=== PATIENT | female | born 1940 | race Caucasian/White ===

== ENCOUNTER 2023-03-28 08:35 | Outpatient (RCR) | payer MEDICARE | END 2023-03-30 | disposition home or self-care (01) | LOC: CR 08:35 | PROVIDERS: ATTEND Internal Medicine Interventional Cardiology | DX: Z29.8 Encounter for other specified prophylactic measures (principal) | CPT/HCPCS: 93798 ==

== ENCOUNTER → 2023-04-30 | Outpatient (RCR) | payer MEDICARE | END | disposition home or self-care (01) | LOC: CR 03-31 07:20 | PROVIDERS: ATTEND Internal Medicine Interventional Cardiology | DX: Z29.8 Encounter for other specified prophylactic measures (principal); Z95.2 Presence of prosthetic heart valve | CPT/HCPCS: 93798 ==

== ENCOUNTER → 2023-05-30 | Outpatient (RCR) | payer MEDICARE | END | disposition home or self-care (01) | LOC: CR 05-02 14:04 | PROVIDERS: ATTEND Internal Medicine Interventional Cardiology | DX: Z29.8 Encounter for other specified prophylactic measures (principal); Z95.2 Presence of prosthetic heart valve | CPT/HCPCS: 93798 ==

== ENCOUNTER → 2023-06-30 | Outpatient (RCR) | payer MEDICARE | END | disposition home or self-care (01) | LOC: CR 06-02 08:06 | PROVIDERS: ATTEND Internal Medicine Interventional Cardiology | DX: Z29.8 Encounter for other specified prophylactic measures (principal); Z95.2 Presence of prosthetic heart valve | CPT/HCPCS: 93798 ==

== ENCOUNTER 2023-07-14 10:57 | Outpatient (RCR) | payer MEDICARE | END 2023-07-31 | disposition home or self-care (01) | LOC: CR 10:57 | PROVIDERS: ATTEND Internal Medicine Interventional Cardiology | DX: Z29.8 Encounter for other specified prophylactic measures (principal); Z95.2 Presence of prosthetic heart valve | CPT/HCPCS: 93798 ==